=== PATIENT | female | born 1945 | race Caucasian/White ===

== ENCOUNTER → 2016-08-11 | Outpatient (CLI) | payer MEDICARE ==
[2016-08-11 12:21] LABS: HEMATOCRIT 52.2 % (35.0-46.0); MEAN CELL VOLUME 91.2 FL (80.0-100.0); MEAN CORPUSCULAR HEMOGLOBIN 30.7 PG (27.0-34.0); MEAN CORPUSCULAR HGB CONC 33.7 % (32.0-36.0); PLATELET COUNT 209 TH/MM3 (150-450); RED BLOOD COUNT 5.73 MIL/MM3 (4.00-5.30); RED CELL DISTRIBUTION WIDTH 13.5 % (11.6-17.2); REVIEW FLAG FINAL; WHITE BLOOD COUNT 6.5 TH/MM3 (4.0-11.0)
[2016-08-11 12:22] LABS: BACTERIA, URINE MOD /hpf; BLOOD, URINE NEG (NEG); GLUCOSE,URINE NEG (NEG); KETONE, URINE NEG (NEG); MUCUS URINE FEW /lpf (OCC); NITRITE,URINE NEG (NEG); PH, URINE 5.5 (5.0-8.5); SQUAMOUS EPITHELIAL CELL URINE 11 /hpf (0-5); URINE COLOR YELLOW (YELLW/STRAW)
[2016-08-11 13:17] LABS: ALKALINE PHOSPHATASE 75 U/L (45-117); ALT (GPT) 19 U/L (10-53); ANION GAP 10 MEQ/L (5-15); AST (GOT) 19 U/L (15-37); BICARBONATE 28.9 MEQ/L (21.0-32.0); BLOOD UREA NITROGEN 16 MG/DL (7-18); CHLORIDE 106 MEQ/L (98-107); GLOMERULAR FILTRATION RATE 74 ML/MIN (>89); GLUCOSE,FASTING 80 MG/DL (74-99); HDL CHOLESTEROL 61.8 MG/DL (40.0-60.0); LDL CHOLESTEROL 122 MG/DL (0-99); POTASSIUM 4.5 MEQ/L (3.5-5.1); SODIUM (NA) 145 MEQ/L (136-145); TOTAL BILIRUBIN ADULT 1.2 MG/DL (0.2-1.0)
== END ==
LOC: ELAB 09:33
PROVIDERS: ATTEND Internal Medicine
DX: R53.83 Other fatigue (principal); D52.9 Folate deficiency anemia, unspecified; E78.5 Hyperlipidemia, unspecified; E55.9 Vitamin D deficiency, unspecified
CPT/HCPCS: 36415; 80053; 80061; 81001; 82306; 82607; 82746; 84443; 85027